=== PATIENT | male | born 1965 | race Two or more races ===

== ENCOUNTER 2022-08-12 18:13 | Emergency (ER) | payer OTHER ==
[~2022-08-12] VITALS: Ht 167.6 cm; Wt 104.5 kg
[2022-08-12 19:34] LABS: Urine WBC None Seen /hpf (0 - 3)
[2022-08-12 19:41] LABS: Urine Bacteria NONE SEEN /hpf (None Seen); Urine Blood 3+ /uL (Negative)
[2022-08-12 20:12] LABS: Basophils # (auto) 0.1 10 ^3/uL (0-0.2); Basophils % (auto) 0.7 % (0.0-2.0); Eosinophils # (auto) 0 10 ^3/uL (0-0.8); Eosinophils % (auto) 0.2 % (0.0-7.0); Hematocrit 33.9 % (41.0-53.0); Hemoglobin 11.7 g/dL (13.5-17.5); Lymphocytes # (auto) 1.6 10 ^3/uL (0.4-5.4); Lymphocytes % (auto) 16.2 % (10.0-50.0); Mean Corpuscular Hemoglobin 29.9 pg (28.0-32.0); Mean Corpuscular Hgb Conc. 34.5 g/dL (32.0-36.0); Mean Corpuscular Volume 86.6 fL (80.0-100.0); Monocytes # (auto) 0.6 10 ^3/uL (0-1.3); Monocytes % (auto) 5.8 % (0.0-12.0); Neutrophils # (auto) 7.4 10 ^3/uL (1.6-8.6); Neutrophils % (auto) 77.1 % (37.0-80.0); Nucleated Red Blood Cells % 0.2 %; Red Blood Cells 3.92 10^6/uL (4.5-5.90); Red Cell Distribution Width 14.3 % (11.8-14.3); White Blood Cell 9.6 10^3/uL (4.4-10.8)
[2022-08-12 20:25] LABS: Albumin 4.1 g/dL (3.4-5.0); BUN/Creatinine Ratio 13.6; Calcium 9.1 mg/dL (8.5-10.1)
[2022-08-12 20:28] LABS: Bilirubin, Total 0.4 mg/dL (0.2-1.0); Total Protein 7.6 g/dL (6.4-8.2)
[2022-08-12] MEDS ORDERED: IOHEXOL 300 MG/ML 100ML BOTTLE IJ ONE (21:19)
[2022-08-13 12:00] VITALS: BP 116/74
[2022-08-13] MEDS ORDERED: PHENAZOPYRIDINE HCL 100 MG TAB PO ONE (12:30)
[2022-08-13] MEDS ORDERED: PHEN200T16 PO (12:33)
[2022-08-13] MEDS ORDERED: TAM04C PO (12:33)
== END 2022-08-13 13:06 | disposition home or self-care (01) ==
LOC: ER 18:13
DX: K59.00 Constipation, unspecified (principal); R93.41 Abnormal radiologic findings on diagnostic imaging of renal pelvis, ureter, or bladder; Z20.822 Contact with and (suspected) exposure to COVID-19
CPT/HCPCS: 36415; 74177; 80053; 81001; 83690; 85025; 87426; 99285; Q9967